=== PATIENT | female | born 1985 | race Caucasian/White ===

== ENCOUNTER 2018-04-25 02:08 | Emergency (ER) | payer OTHER ==
[~2018-04-25] VITALS: Ht 177.8 cm; Wt 106.6 kg
[~2018-04-25 02:08] MED LIST: BACITRACIN 500U30 G1 TOP; BENADRYL25 MG PO; IBUPROFEN 800800 M1 PO; IBUPROFEN 800800 MG PO; TRIAMCINOLONE 080 G3 TOP
[2018-04-25] MEDS ORDERED: KEFLEX500 M1 PO (04:17)
[2018-04-25] MEDS ORDERED: PREDNISONE50 MG PO (04:17)
== END 2018-04-25 04:37 | disposition home or self-care (01) ==
LOC: ER 02:08
DX: T36.0X5A Adverse effect of penicillins, initial encounter (principal); O92.6 Galactorrhea; Z88.1 Allergy status to other antibiotic agents; Y92.89 Other specified places as the place of occurrence of the external cause

== ENCOUNTER 2020-11-15 19:29 | Emergency (ER) | payer OTHER ==
[~2020-11-15] VITALS: Ht 177.8 cm; Wt 102.1 kg
[~2020-11-15 19:29] MED LIST changes: +KEFLEX500 M1 PO; +PREDNISONE50 MG PO
[2020-11-15 20:14] LABS: URINE BILIRUBIN NEGATIVE (Negative); URINE BLOOD NEGATIVE (Negative); URINE CLARITY CLEAR; URINE COLOR YELLOW; URINE GLUCOSE-RANDOM* NEGATIVE (Negative); URINE KETONES NEGATIVE (Negative); URINE LEUKOCYTES-REFLEX NEGATIVE (Negative); URINE NITRITE-REFLEX NEGATIVE (Negative); URINE PROTEIN (DIPSTICK) NEGATIVE (Negative); URINE SPECIFIC GRAVITY 1.025 (1.005-1.035); URINE UROBILINOGEN 0.2 E.U./dl (0.2-1.0)
[2020-11-15] MEDS ORDERED: DOXYCYCLINE 10100 MG PO (21:18)
[2020-11-15 21:43] VITALS: BP 106/64
== END 2020-11-15 21:44 | disposition home or self-care (01) ==
LOC: ER 19:29
PROVIDERS: Nurse Practitioner
DX: N89.8 Other specified noninflammatory disorders of vagina (principal); Z20.2 Contact with and (suspected) exposure to infections with a predominantly sexual mode of transmission; Z88.1 Allergy status to other antibiotic agents

== ENCOUNTER 2020-11-25 01:20 | Emergency (ER) | payer OTHER ==
[~2020-11-25] VITALS: Ht 177.8 cm; Wt 106.6 kg
[~2020-11-25 01:20] MED LIST changes: +DOXYCYCLINE 10100 MG PO
[2020-11-25 01:23] VITALS: BP 118/76
[2020-11-25] MEDS ORDERED: NOHOMEMEDICATIONS (01:56)
[2020-11-25] MEDS ORDERED: PREDNISONE 10 M10 M1 PO (02:08)
== END 2020-11-25 02:21 | disposition home or self-care (01) ==
LOC: ER 01:20
DX: L23.7 Allergic contact dermatitis due to plants, except food (principal); Z88.1 Allergy status to other antibiotic agents